=== PATIENT | female | born 1945 | race Caucasian/White ===

== ENCOUNTER → 2017-02-26 | Outpatient (CLI) | payer OTHER ==
[~2017-02-26] MED LIST: ATV5 PO; CHOL100027 PO; CYCL10TA6 PO; DICY1TAB25 PO; GADAVIST IV PRN; HYDR1TAB2 PO; MRLP17 PO; MULT-506 PO; POLY335040 PO; PRT/20 PO; TRAM-10 PO
--- NOTE | 2017-02-26 11:12 | DIAGNOSTIC IMAGING REPORT ---
BRAIN COMBO FOR MS CLINICAL HISTORY: Demyelinating disease. Multiple sclerosis. Headaches. COMPARISON STUDY: MRI of the December 25, [address] August 05, 2012. TECHNIQUE: Utilizing a 1.5 Karla magnet, multiplanar, multi echo imaging of the brain was performed pre and postcontrast ministration according to the multiple sclerosis protocol. Injection of 6.5 cc of Gadavist IV was uneventful. FINDINGS: There are no areas of restricted diffusion. No acute intracranial hemorrhage, midline shift or mass effect is present. Brain volume is normal for age. Ventricular system is normal. Basilar cisterns are patent. There are no extra-axial collections. Flow-voids for the major intracranial vessels are present. No intracranial mass or pathologic enhancement is identified on this exam. There is no enhancement to suggest active demyelination. Extensive white matter T2 hyperintense foci are again noted, predominantly within a subcortical distribution. There has been mild increase in these foci since exam of December 25, 2008. An air-fluid level within the right maxillary sinus with possible bubbly secretions is noted. There is no calvarial replacement. Left sphenoid sinus mucosal thickening versus mucous retention cyst is noted. A small amount of fluid is noted within the posterior left mastoid air cells. IMPRESSION: 1. No acute intracranial findings. 2. Mild progression of extensive white matter T2 hyperintense foci since exam of December 25, 2008. The findings are nonspecific but may reflect a demyelinating disease. No evidence for active demyelination by MRI. 3. Right maxillary sinus air-fluid level which raises the possibility of acute sinusitis. 4. Small amount of fluid within the left mastoid air cells. Electronically signed by: Chandrakant Robert M.D. 02/26/2017 11:11 AM Dictated Date/Time: 02/26/2017 11:03 AM
[2017-02-26 14:24] LABS: BLOOD UREA NITROGEN 13 mg/dl (7-18); CREATININE 0.89 mg/dl (0.60-1.20)
[2017-02-26 14:25] LABS: C-REACTIVE PROTEIN 0.29 mg/dl (0-0.29)
[2017-02-26 14:50] LABS: LYME DISEASE AB IGG NEG (NEG)
[2017-02-26 14:51] LABS: LYME DISEASE AB IGM NEG (NEG)
[2017-02-27 07:58] LABS: ESTIMATED AVERAGE GLUCOSE 97 mg/dl; HA1C FLAG Normal (Normal)
[2017-03-02 03:05] LABS: ALBUMIN 4.1 G/DL (3.8-4.8); ANTI-CENTROMERE AB <1.0 NEG AI (<1.0 NEG); ANTI-SS-A <1.0 NEG AI (<1.0 NEG); ANTI-SS-B <1.0 NEG AI (<1.0 NEG); DNA ds CRITHIDIA NEGATIVE (NEGATIVE); GAMMA GLOBULIN 1.4 G/DL (0.8-1.7); MICROSOMAL AB <1 IU/ML (<9); Sm Antibody <1.0 NEG AI (<1.0 NEG); TOTAL PROTEIN 7.3 G/DL (6.2-8.3)
[2017-03-02 15:18] LABS: ANA TITER > OR = 1:1280 TITER (<1:40)
--- NOTE | 2017-03-11 14:48 | CODING QUERY MEDICAL NECESSITY ---
SUPPORTING DIAGNOSIS NEEDED A supporting diagnosis is required for the test/procedure performed on this patient in order for us to be reimbursed by the patient's insurance. Please provide a supporting diagnosis for the following test/procedure listed below next to the test name along with your signature. *If there is no additional diagnosis for this patient that would support the following test/procedure please document that below next to the test/procedure. Test(s)/Procedure(s) that require a supporting diagnosis: * VITAMIN B12 DIAGNOSIS: * HEMOGLOBIN A1C DIAGNOSIS: Provider Signature: Date: Thank you Celia Mcclain [employer] Once completed, please kindly fax back to [phone] For questions please call [phone]
== END | disposition home or self-care (01) ==
LOC: C.MRIBC 09:23
PROVIDERS: ATTEND Psychiatry & Neurology Neurology
DX: Z00.00 Encounter for general adult medical examination without abnormal findings (principal); R51 Headache; G62.9 Polyneuropathy, unspecified; G37.9 Demyelinating disease of central nervous system, unspecified; R20.0 Anesthesia of skin